=== PATIENT | male | born 1990 | race African-American/Black ===

== ENCOUNTER 2016-11-27 09:42 | Emergency (ER) | payer MEDICAID ==
[~2016-11-27] VITALS: Ht 182.9 cm; Wt 120.0 kg
[2016-11-27] MEDS ORDERED: SODIUM CHLORIDE 0.9% 1,000 ML IV ONE (09:50)
[2016-11-27 10:33] LABS: BASOPHILS % 0.9 % (0.0-2.0); HEMATOCRIT. 39.3 % (42.0-52.0); HEMOGLOBIN. 13.2 g/dL (14.0-18.0); LYMPHOCYTES % 26.2 % (20.0-50.0); MEAN CORPUSCULAR HEMOGLOBIN 29.9 pg (28.0-32.0); MEAN PLATELET VOLUME 7.9 fl (7.4-10.4); MONOCYTES % 6.7 % (2.0-8.0); NEUTROPHILS % 63.2 % (40.0-76.0); PLATELET 314 x1000/uL (130-400); RED BLOOD CELL COUNT 4.42 mill/uL (4.7-6.1); RED CELL DISTRIBUTION WIDTH 13.1 % (11.6-14.6)
[2016-11-27 10:41] LABS: CHLORIDE 105 mEq/L (98-107)
[2016-11-27 10:53] LABS: CARBON DIOXIDE 28 mEq/L (21-32); ETHANOL BLOOD < 10 mg/dL
[2016-11-27 10:59] LABS: *AMPHETAMINES SCREEN URINE NEGATIVE (NEGATIVE); *BARBITURATES SCREEN URINE NEGATIVE (NEGATIVE); *BENZODIAZEPINES SCREEN URINE NEGATIVE (NEGATIVE); *COCAINE SCREEN URINE NEGATIVE (NEGATIVE); CANNABINOID URINE SCREEN NEGATIVE (NEGATIVE); METHADONE URINE SCREEN NEGATIVE (NEGATIVE); OPIATES URINE SCREEN NEGATIVE (NEGATIVE); PHENCYCLIDINE URINE SCREEN NEGATIVE (NEGATIVE)
[2016-11-27 11:25] VITALS: BP 124/64
[2016-11-27] MEDS ORDERED: RISPERIDONE 0.5MG TABLET PO SCH (11:30)
== END 2016-11-27 12:47 | disposition home or self-care (01) ==
LOC: EDBD 09:49 → ER 09:49
DX: F20.9 Schizophrenia, unspecified (principal); D64.9 Anemia, unspecified; F31.9 Bipolar disorder, unspecified; I10 Essential (primary) hypertension; D72.819 Decreased white blood cell count, unspecified; Z88.0 Allergy status to penicillin
CPT/HCPCS: 36415; 80048; 80305; 80307; 80329; 85025; 96360; 96361; 99285; G0482; Z7610; J7030